=== PATIENT | female | born 1975 | race American Indian/Alaskan Native ===

== ENCOUNTER 2019-03-24 09:09 | Emergency (ER) | payer OTHER ==
[2019-03-24 10:07] LABS: Basophils # (Auto) 0.1 K/mm3 (0.0-0.1); Basophils % (Auto) 1.5 % (0.0-1.8); Eosinophils # (Auto) 0.1 K/mm3 (0.0-0.4); Eosinophils % (Auto) 1.1 % (0.0-4.3); Hemoglobin 12.2 gm/dl (10.1-14.3); Lymphocytes # (Auto) 3.5 K/mm3 (1.2-5.4); Lymphocytes % (Auto) 44.8 % (13.4-35.0); Mean Corpuscular HGB Conc 33 % (30-34); Mean Corpuscular Volume 89 fl (79-97); Monocytes # (Auto) 0.5 K/mm3 (0.0-0.8); Monocytes % (Auto) 6.8 % (0.0-7.3); Platelet Count 320 K/mm3 (140-440); Red Blood Count 4.18 M/mm3 (3.65-5.03); Red Cell Distribution Width 14.2 % (13.2-15.2)
--- NOTE | 2019-03-24 10:08 | Emergency Department Report ---
ED Abdominal Pain HPI - General Chief Complaint: Dizziness Stated Complaint: LIGHTHEADED/DIZZINESS Time Seen by Provider: 03/24/19 09:43 Source: patient Mode of arrival: Ambulatory Limitations: No Limitations - History of Present Illness Initial Comments: 43-year-old female presents to ED with right lower quadrant pain 5 days. Patient reports onset of her history. 5 days ago. Patient reports she has had more severe cramping than usual, mostly located on the right side. Patient is concerned because she had a ruptured ectopic 8 years ago, for which she underwent left ovary and adnexa removal. Patient reports tubal ligation on the right side. Patient states that she is at work on night. States her job requires that she is mostly sitting during her shift. When she got off work at 6 AM this morning, patient reports dizziness with standing. She denies any fever, nausea or vomiting. Reports urinary frequency. MD Complaint: abdominal pain -: days(s) (5) Location: RLQ Radiation: none Migration to: no migration Severity: moderate Quality: cramping Consistency: intermittent Improves With: nothing Worsens With: nothing Associated Symptoms: denies: nausea, vomiting, diarrhea, fever, chills, dysuria - Related Data Previous Rx's Medication Instructions Recorded Last Taken Type Naproxen [Naprosyn] 500 mg PO BID #20 tablet 03/24/19 Unknown Rx hydroCHLOROthiazide [HCTZ] 25 mg PO QDAY #30 tablet 03/24/19 Unknown Rx traMADoL [Ultram] 50 mg PO Q6HR PRN #7 tablet 03/24/19 Unknown Rx Allergies Allergy/AdvReac Type Severity Reaction Status Date / Time No Known Allergies Allergy Unverified 03/24/19 09:12 ED Review of Systems ROS: Stated complaint: LIGHTHEADED/DIZZINESS Other details as noted in HPI Comment: All other systems reviewed and negative Constitutional: denies: chills, fever Respiratory: denies: shortness of breath Cardiovascular: denies: chest pain Gastrointestinal: abdominal pain. denies: nausea, vomiting, diarrhea Genitourinary: frequency, other (reports vag bleeding) Neurological: other (reports dizziness) ED Past Medical Hx - Past Medical History Previous Medical History?: Yes Hx Hypertension: Yes (not on meds) - Surgical History Past Surgical History?: Yes Additional Surgical History: ectopic - Social History Smoking Status: Never Smoker Substance Use Type: None - Medications Home Medications: Home Medications Medication Instructions Recorded Confirmed Last Taken Type Naproxen [Naprosyn] 500 mg PO BID #20 tablet 03/24/19 Unknown Rx hydroCHLOROthiazide [HCTZ] 25 mg PO QDAY #30 tablet 03/24/19 Unknown Rx traMADoL [Ultram] 50 mg PO Q6HR PRN #7 tablet 03/24/19 Unknown Rx ED Physical Exam - General Limitations: No Limitations General appearance: alert, in no apparent distress - Head Head exam: Present: atraumatic, normocephalic - Eye Eye exam: Present: normal appearance, EOMI - ENT ENT exam: Present: mucous membranes moist - Neck Neck exam: Present: normal inspection, full ROM - Respiratory Respiratory exam: Present: normal lung sounds bilaterally. Absent: respiratory distress - Cardiovascular Cardiovascular Exam: Present: regular rate, bradycardia - GI/Abdominal GI/Abdominal exam: Present: soft, tenderness (mild RLQ tenderness). Absent: distended, guarding, rebound - Extremities Exam Extremities exam: Present: normal inspection - Neurological Exam Neurological exam: Present: alert, oriented X3 - Psychiatric Psychiatric exam: Present: normal affect, normal mood - Skin Skin exam: Present: warm, dry, intact, normal color ED Course Vital Signs 03/24/19 03/24/19 09:18 13:04 Temperature 98.2 F 98.9 F Pulse Rate 58 L 68 Respiratory 16 20 Rate Blood Pressure 165/87 157/80 [Left] O2 Sat by Pulse 100 97 Oximetry - Reevaluation(s) Reevaluation #1: 03/24/19 10:16 Orthostatics done. Pt is not orthostatic, but hypertensive. Reports she was diagnosed with HTN previously, took BP meds for a few months, then took herself off of the medications b/c she reports her BP improved. ED Medical Decision Making - Lab Data Result diagrams: 03/24/19 09:40 - Radiology Data Radiology results: report reviewed, image reviewed - Medical Decision Making 43-year-old female presents to ED with right lower quadrant pain, concern for possible ectopic . test is negative. Patient does have right lower quadrant tenderness on exam. Appendicitis unlikely as pt is afebrile, WBCs normal. Ultrasound was done to rule out a possible right ovarian torsion or hemorrhagic ovarian cyst, due to cramping that is out of character for her usual menstrual periods. Ultrasound does show a right ovarian cysts and uterine fibroids. Dizziness was reported by the patient, likely hypertensive dizziness given that patient is off BP meds. No neuro deficits on exam. Patient given HCTZ 25 mg here in ED. Pt now ambulatory w/ normal gait. Outpatient follow-up advised. We'll discharge at this time. Return precautions given. - Differential Diagnosis ectopic , ovarian torsion, ovarian cyst, appendicitis Critical care attestation.: If time is entered above; I have spent that time in minutes in the direct care of this critically ill patient, excluding procedure time. ED Disposition Clinical Impression: Acute abdominal pain, Ovarian cyst, Fibroid, uterine, Uncontrolled hypertension Disposition: TO HOME OR SELFCARE Is pt being admited?: No Condition: Stable Instructions: Ovarian Cyst (ED), Uterine Fibroids (ED), Hypertension (ED) Prescriptions: hydroCHLOROthiazide [HCTZ] 25 mg PO QDAY #30 tablet Naproxen [Naprosyn] 500 mg PO BID #20 tablet traMADoL [Ultram] 50 mg PO Q6HR PRN #7 tablet PRN Reason: Pain Referrals: JUSTIN WU,DEN [Other] - 3-5 Days PRIMARY CAREMD [Referring] - 3-5 Days Time of Disposition: 12:53
[2019-03-24] MEDS ORDERED: KETOROLAC 30 MG/1 ML INJ IM ONE (11:06)
[2019-03-24] MEDS ORDERED: hydroCHLOROthiazide 25 MG TAB PO ONE (11:06)
[2019-03-24 11:21] LABS: Bilirubin,Urine NEG (Negative); Blood,Urine NEG (Negative); Color,Urine Straw (Yellow); Mucus,Urine FEW /HPF; Protein,Urine <15 mg/dL mg/dL (Negative); Urobilinogen,Urine < 2.0 mg/dL (<2.0); WBC,Urine < 1.0 /HPF (0.0-6.0)
--- NOTE | 2019-03-24 12:32 | Ultrasound Report ---
ULTRASOUND PELVIS DUPLEX DOPPLER COMPLETE ULTRASOUND TRANSVAGINAL HISTORY: Right lower quadrant pain for 3 days, right pelvic pain TECHNIQUE: Transabdominal and transvaginal ultrasound imaging with color and spectral Doppler interro gation. FINDINGS: The uterus is retroverted. The uterus is mildly enlarged measuring 13.6 x 5.4 x 5.9 cm. A 1.4 cm subm ucosal fibroid is identified in the anterior wall. The cervix is unremarkable. The endometrial stripe is mildly atrophic measuring 2-3 mm. The right ovary measures 3.3 x 1.7 x 2.5 cm. 2 small ovarian cysts are identified measuring 1.1 cm. The left ovary measures 3.3 x 1.8 x 2.4 cm. Normal follicles are identified. Spectral Doppler waveforms demonstrate arterial flow to both ovaries. IMPRESSION: Small submucosal fibroid in the anterior wall of the uterus. Mild endometrial atrophy. 2 small simple right ovarian cysts measuring 1.1 cm. Signer Name: Danilo Suero Jr, MD Signed: 03/24/2019 12:28 PM Workstation Name: [id number]
[2019-03-24 13:05] VITALS: BP 157/80
== END 2019-03-24 13:06 | disposition home or self-care (01) ==
LOC: ED 09:09
DX: N83.209 Unspecified ovarian cyst, unspecified side (principal); I10 Essential (primary) hypertension; D21.9 Benign neoplasm of connective and other soft tissue, unspecified; Z98.890 Other specified postprocedural states; Z79.899 Other long term (current) drug therapy
CPT/HCPCS: 36415; 76830; 81001; 84703; 85025; 93975; 96372; 99284; J1885

== ENCOUNTER 2020-02-16 09:18 | Emergency (ER) | payer OTHER ==
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
--- NOTE | 2020-02-16 12:28 | XRay Report ---
CERVICAL SPINE 3 VIEWS INDICATION / CLINICAL INFORMATION: neck pain COMPARISON: None available. FINDINGS: BONES / JOINT(S): No acute fracture or subluxation. Minimal degenerative disc disease. SOFT TISSUES: No significant abnormality. ADDITIONAL FINDINGS: None. Signer Name: nAirudh Torres MD Signed: 02/16/2020 12:23 PM Workstation Name: [id number]
[2020-02-16 12:55] VITALS: BP 131/90
== END 2020-02-16 12:54 | disposition home or self-care (01) ==
LOC: ED 09:18
DX: S13.4XXA Sprain of ligaments of cervical spine, initial encounter (principal); I10 Essential (primary) hypertension; Z98.890 Other specified postprocedural states; Z79.1 Long term (current) use of non-steroidal anti-inflammatories (NSAID); Z79.899 Other long term (current) drug therapy; V49.49XA Driver injured in collision with other motor vehicles in traffic accident, initial encounter; Y93.89 Activity, other specified; Y92.410 Unspecified street and highway as the place of occurrence of the external cause; Y99.8 Other external cause status
CPT/HCPCS: 72040

== ENCOUNTER 2020-10-02 21:59 | Emergency (ER) | payer OTHER ==
--- NOTE | 2020-10-03 00:26 | Emergency Department Report ---
ED Extremity Problem HPI - General Chief complaint: Extremity Injury, Upper Stated complaint: RT HAND PAIN Time Seen by Provider: 10/02/20 23:35 Source: patient Mode of arrival: Ambulatory Limitations: No Limitations - History of Present Illness Initial comments: This is a 44-year-old female with no prior medical history who presents to ED complaining of right hand pain x1 week. Patient states that pain began about a week ago she noticed it after sleeping weird on it. Patient states that since then she has had pain to the posterior aspect of the hand. Patient states that pain is worsening and not getting any better. Patient states she has been using her brace which has not been resolving. Patient states that upon bending the wrist she has pain on the hand. Patient states she noticed some swelling to the area. She denies any injury or trauma or falls. Patient does note that she uses her hands a lot. MD Complaint: extremity pain Location: right History of Same: No -: Yes myalgia, Yes arthralgia Radiation: none Severity scale (0 -10): 7 Quality: burning, aching Improves with: immobilization Worsens with: palpation - Related Data Previous Rx's Medication Instructions Recorded Last Taken Type hydroCHLOROthiazide [HCTZ] 25 mg PO QDAY #30 tablet 03/24/19 Unknown Rx traMADoL [Ultram] 50 mg PO Q6HR PRN #7 tablet 03/24/19 Unknown Rx Baclofen 20 mg PO Q8H PRN #24 tablet 12/06/19 Unknown Rx Ibuprofen [Motrin] 600 mg PO Q8H PRN #30 tablet 12/06/19 Unknown Rx traMADoL [Ultram] 50 mg PO Q6HR PRN #12 tablet 12/06/19 Unknown Rx Cyclobenzaprine [Flexeril 10 MG 10 mg PO QHS PRN #20 tablet 10/03/20 Unknown Rx TAB] Naproxen [Naprosyn TAB] 500 mg PO BID #20 tablet 10/03/20 Unknown Rx Allergies Allergy/AdvReac Type Severity Reaction Status Date / Time No Known Allergies Allergy Verified 02/16/20 10:13 ED Review of Systems ROS: Stated complaint: RT HAND PAIN Other details as noted in HPI Comment: All other systems reviewed and negative ED Past Medical Hx - Past Medical History Previous Medical History?: No Hx Hypertension: Yes (not on meds) - Surgical History Additional Surgical History: ectopic / FIBROID, UFE - Social History Smoking Status: Never Smoker Substance Use Type: Alcohol - Medications Home Medications: Home Medications Medication Instructions Recorded Confirmed Last Taken Type hydroCHLOROthiazide [HCTZ] 25 mg PO QDAY #30 tablet 03/24/19 Unknown Rx traMADoL [Ultram] 50 mg PO Q6HR PRN #7 tablet 03/24/19 Unknown Rx Baclofen 20 mg PO Q8H PRN #24 tablet 12/06/19 Unknown Rx Ibuprofen [Motrin] 600 mg PO Q8H PRN #30 tablet 12/06/19 Unknown Rx traMADoL [Ultram] 50 mg PO Q6HR PRN #12 tablet 12/06/19 Unknown Rx Cyclobenzaprine [Flexeril 10 MG 10 mg PO QHS PRN #20 tablet 10/03/20 Unknown Rx TAB] Naproxen [Naprosyn TAB] 500 mg PO BID #20 tablet 10/03/20 Unknown Rx ED Physical Exam - General Limitations: No Limitations General appearance: alert, in no apparent distress - Head Head exam: Present: atraumatic, normocephalic - Eye Eye exam: Present: normal appearance - ENT ENT exam: Present: mucous membranes moist - Neck Neck exam: Present: normal inspection, full ROM. Absent: tenderness - Respiratory Respiratory exam: Present: normal lung sounds bilaterally. Absent: respiratory distress - Cardiovascular Cardiovascular Exam: Present: regular rate, normal rhythm. Absent: systolic murmur, diastolic murmur, rubs, gallop - GI/Abdominal GI/Abdominal exam: Present: soft, normal bowel sounds - Extremities Exam Extremities exam: Present: normal inspection, full ROM, tenderness (To the palpation of the posterior aspect of the head at the metacarpal bone of the middle finger), normal capillary refill. Absent: joint swelling - Back Exam Back exam: Present: normal inspection - Neurological Exam Neurological exam: Present: alert, oriented X3, CN II-XII intact, normal gait - Psychiatric Psychiatric exam: Present: normal affect, normal mood - Skin Skin exam: Present: warm, dry, intact, normal color. Absent: rash ED Medical Decision Making - Radiology Data Radiology results: report reviewed, image reviewed Fluoro Time In Minutes: EXAMINATION: Right hand radiograph, 3 views, 10/02/2020 CLINICAL INFORMATION: Right hand pain and swelling COMPARISON: None. FINDINGS: There is no evidence of acute fracture or dislocation of the right hand. No focal soft tissue swelling is identified. There are no significant bony degenerative changes. Signer Name: Trisha Aguayo MD Signed: 10/03/2020 12:34 AM Workstation Name: [id number] Transcribed By: DAYRON Dictated By: Trisha Aguayo MD Electronically Authenticated By: Trisha Aguayo MD Signed Date/Time: 10/03/20 0034 - Medical Decision Making 44-year-old female presents with hand pain. X-ray shows see report above. Discussed with patient possible muscle strain/carpal tunnel syndrome. Discussed continued wrist brace. Discussed follow-up with orthopedic physician as referred. Vital signs are stable she is in no acute distress. Critical care attestation.: If time is entered above; I have spent that time in minutes in the direct care of this critically ill patient, excluding procedure time. ED Disposition Clinical Impression: Arthralgia of hand Disposition: DC-01 TO HOME OR SELFCARE Is pt being admited?: No Does the pt Need Aspirin: No Condition: Stable Instructions: How to Use Cold Therapy, [id number], Musculoskeletal Pain, Joint Pain, [id number] Additional Instructions: Make sure to follow up with the primary care physician as discussed. Take all your medications as you've been prescribed. If you have any worsening symptoms or develop new symptoms please return to ED immediately. Prescriptions: Cyclobenzaprine [Flexeril 10 MG TAB] 10 mg PO QHS PRN #20 tablet PRN Reason: Muscle Spasm Naproxen [Naprosyn TAB] 500 mg PO BID #20 tablet Referrals: VIDHYA MOSER MD [Staff Physician] - 3-5 Days [facility] [Provider Group] - 3-5 Days Forms: Work/School Release Form(ED) Time of Disposition: 00:53
--- NOTE | 2020-10-03 00:38 | XRay Report ---
EXAMINATION: Right hand radiograph, 3 views, 10/02/2020 CLINICAL INFORMATION: Right hand pain and swelling COMPARISON: None. FINDINGS: There is no evidence of acute fracture or dislocation of the right hand. No focal soft tiss ue swelling is identified. There are no significant bony degenerative changes. Signer Name: Trisha Aguayo MD Signed: 10/03/2020 12:34 AM Workstation Name: [id number]
[2020-10-03 01:49] VITALS: BP 137/94
== END 2020-10-03 01:45 | disposition home or self-care (01) ==
LOC: ED 21:59
DX: M25.541 Pain in joints of right hand (principal); I10 Essential (primary) hypertension; Z98.890 Other specified postprocedural states; Z79.899 Other long term (current) drug therapy; Z79.1 Long term (current) use of non-steroidal anti-inflammatories (NSAID)